=== PATIENT | male | born 1985 | race African-American/Black ===

== ENCOUNTER 2016-10-10 10:58 | Emergency (ER) | payer OTHER ==
[~2016-10-10] VITALS: Ht 177.8 cm; Wt 74.8 kg
[2016-10-10 11:07] VITALS: BP 139/48
[2016-10-10] MEDS ORDERED: LIDOCAINE HCL/PF 1% 30 ML VIAL TP ONE (11:30)
== END 2016-10-10 12:37 | disposition home or self-care (01) ==
LOC: ER 11:01
DX: S63.284A Dislocation of proximal interphalangeal joint of right ring finger, initial encounter (principal); W51.XXXA Accidental striking against or bumped into by another person, initial encounter; Y93.89 Activity, other specified; Y92.89 Other specified places as the place of occurrence of the external cause; Y99.8 Other external cause status
CPT/HCPCS: 26770; 73130; 99284; A4606; J3490; Z7610